=== PATIENT | female | born 1950 | race Caucasian/White ===

== ENCOUNTER 2016-12-28 13:51 | Emergency (ER) | payer SELFPAY, OTHER ==
[2016-12-28 14:14] VITALS: TEMP 99.5
[2016-12-28] MEDS ORDERED: Naproxen 550 mg Tab PO STA (14:27)
[2016-12-28] MEDS ORDERED: Naproxen 550 mg Tab PO ONE (14:34)
--- NOTE | 2016-12-28 14:49 | RAD ---
PROCEDURE: Radiographs of the Right Shoulder HISTORY: Pain, denies injury COMPARISON: None available FINDINGS: BONES: No acute displaced fracture. The distal clavicle and underlying ribs appear intact. JOINTS: No acute dislocation. Acromioclavicular arthropathy. 7 mm calcification adjacent to the right humeral head consistent with calcific tendinitis. SOFT TISSUES: Soft tissues appear unremarkable. No evidence of radiopaque foreign body. IMPRESSION: Calcific tendinitis.
--- NOTE | 2016-12-28 15:10 | C.PDOC ---
History Of Present Illness Pt c/o right shoulder pain. Denies injury. Time Seen by Provider: 12/28/16 14:18 Chief Complaint (Nursing): Upper Extremity Problem/Injury History Per: Patient Onset/Duration Of Symptoms: Days (about 3 weeks) Current Symptoms Are (Timing): Still Present Quality: "Pain" Severity: Moderate Exacerbating Factor(s): Strenuous Use Of Affected Area, Movement Additional History Per: Prior Records Past Medical History Reviewed: Historical Data, Nursing Documentation, Vital Signs Vital Signs: Last Vital Signs Temp 99.5 F 12/28/16 14:13 Pulse 95 H 12/28/16 14:13 Resp 18 12/28/16 14:13 BP 145/76 12/28/16 14:13 Pulse Ox 99 12/28/16 14:13 - Medical History PMH: No Chronic Diseases Surgical History: No Surg Hx Family History: States: Unknown Family Hx - Social History Hx Alcohol Use: No Hx Substance Use: No - Immunization History Hx Tetanus Toxoid Vaccination: No Hx Influenza Vaccination: No Hx Pneumococcal Vaccination: No Review Of Systems Except As Marked, All Systems Reviewed And Found Negative. Constitutional: Negative for: Fever, Weakness Cardiovascular: Negative for: Chest Pain Respiratory: Negative for: Shortness of Breath Gastrointestinal: Negative for: Vomiting, Abdominal Pain Musculoskeletal: Positive for: Shoulder Pain (right). Negative for: Neck Pain, Back Pain Skin: Negative for: Rash Neurological: Negative for: Weakness, Numbness, Seizures, Altered Mental Status Physical Exam - Physical Exam Appears: Non-toxic, No Acute Distress Skin: Normal Color, Warm, Dry, No Rash Head: Atraumatic, Normacephalic Eye(s): bilateral: Normal Inspection, PERRL, EOMI Neck: Normal ROM, No Midline Cervical Tenderness, No Paracervical Tenderness, No Step Off Deformity, Supple Chest: Symmetrical, No Deformity Cardiovascular: Rhythm Regular Respiratory: Normal Breath Sounds, No Accessory Muscle Use Gastrointestinal/Abdominal: Soft, No Tenderness Back: No CVA Tenderness, No Vertebral Tenderness Extremity: Capillary Refill (wnl), No Deformity, No Swelling Extremity: Right: Limited ROM To Joint (Shoulder, due to pain.) Pulses: Right Radial: Normal Neurological/Psych: Oriented x3, Normal Motor, Normal Sensation ED Course And Treatment O2 Sat by Pulse Oximetry: 99 Pulse Ox Interpretation: Normal - Other Rad Right shoulder x-rays X-Ray: Viewed By Me, Read By Radiologist Interpretation: IMPRESSION: Calcific tendinitis. Reassessment Condition: Improved Disposition Counseled Patient/Family Regarding: Studies Performed, Diagnosis, Need For Followup, Rx Given - Disposition Referrals: [facility] [Outside] Disposition: HOME/ ROUTINE Disposition Time: 15:14 Condition: STABLE Additional Instructions: Follow up in the clinic for further evaluation and treatment. Return to the ER if you develop redness, swelling, worsening of symptoms or if you have any other concerns. Prescriptions: Ibuprofen [Motrin Tab] 600 mg PO Q8 PRN #30 tab PRN Reason: Pain, Moderate (4-7) Instructions: Calcific Tendinitis (ED) Forms: [facility] (Romanian) Print Language: IVORIAN - Clinical Impression Clinical Impression: Calcific tendinitis of right shoulder region
[2016-12-28 15:26] VITALS: BP 129/74; PULSE 84; RESP 16; O2SAT 98
== END 2016-12-28 15:25 | disposition home or self-care (01) ==
LOC: C.ER 13:51
DX: M75.31 Calcific tendinitis of right shoulder (principal)

== ENCOUNTER 2018-09-25 07:23 | Day surgery (SDC) | payer MEDICARE, MEDICAID ==
[2018-09-25 08:13] VITALS: BMI 27.8
[2018-09-25 08:27] VITALS: RESP 16; O2SAT 100
[2018-09-25] MEDS ORDERED: Propofol 10 mg/ml Inj (20 ML) ONE (09:17)
--- NOTE | 2018-09-25 09:17 | CP.SDSHP ---
Same Day Surgery H & P - History Proposed Procedure: COLONSCOPY Pre-Op Diagnosis: SEE NOTES - Previous Medical/Surgical History Endocrine/Metabolic: Other Neuro: Backaches Misc: Other - Allergies Allergies: Allergies No Known Allergies Allergy (Verified 12/28/16 14:24) - Physical Exam General Appearance: N Vital Signs: Vital Signs 09/25/18 08:14 Temperature 98 F Pulse Rate 104 H Respiratory 16 Rate Blood Pressure 144/76 O2 Sat by Pulse 100 Oximetry Mental Status: Alert & Oriented x3 Neuro: WNL Heart: WNL Lungs: WNL GI: Other - {Optional Preform as Required} Breast: WNL Abdomen: Other Rectal: Other Integument: WNL : Other Ortho: Other ENT: WNL - Impression Pt. Evaluated Today:Candidate for Anesthesia & Procedure: Yes - Date & Time Time: Short Stay Discharge - Short Stay Discharge Admitting Diagnosis/Reason for Visit: ANEMIA Disposition: HOME/ ROUTINE
--- NOTE | 2018-09-25 09:20 | CP.SDSHP ---
Same Day Surgery H & P - History Proposed Procedure: egd Pre-Op Diagnosis: see notes - Allergies Allergies: Allergies No Known Allergies Allergy (Verified 12/28/16 14:24) - Physical Exam Vital Signs: Vital Signs 09/25/18 09/25/18 08:14 09:17 Temperature 98 F 98 F Pulse Rate 104 H 104 H Respiratory 16 16 Rate Blood Pressure 144/76 144/76 O2 Sat by Pulse 100 100 Oximetry Short Stay Discharge - Short Stay Discharge Admitting Diagnosis/Reason for Visit: ANEMIA Disposition: HOME/ ROUTINE
[2018-09-25] MEDS ORDERED: Belladonna-Phenobarbital PO ONE (09:55)
[2018-09-25 09:58] VITALS: TEMP 98.3
[2018-09-25 10:21] VITALS: BP 123/69; PULSE 82
== END 2018-09-25 10:21 | disposition home or self-care (01) ==
LOC: C.ENDO 07:23
PROVIDERS: ATTEND Specialist
DX: K29.00 Acute gastritis without bleeding (principal); D64.9 Anemia, unspecified; K44.9 Diaphragmatic hernia without obstruction or gangrene; K29.50 Unspecified chronic gastritis without bleeding; K29.80 Duodenitis without bleeding; B96.81 Helicobacter pylori [H. pylori] as the cause of diseases classified elsewhere
CPT/HCPCS: 43239; 88305; 88342; J2001; J2704

== ENCOUNTER 2018-09-27 07:16 | Day surgery (SDC) | payer MEDICARE, MEDICAID ==
[2018-09-26 10:22] VITALS: BMI 27.8
[2018-09-27 07:51] VITALS: O2SAT 100
--- NOTE | 2018-09-27 09:23 | CP.SDSHP ---
Same Day Surgery H & P - History Proposed Procedure: COLONSCOPY Pre-Op Diagnosis: SEE NOTES - Previous Medical/Surgical History Endocrine/Metabolic: Other Neuro: Backaches, Other Misc: Other Pain: 2.Mild Pain - Allergies Allergies: Allergies No Known Allergies Allergy (Verified 12/28/16 14:24) - Physical Exam General Appearance: N Vital Signs: Vital Signs 09/27/18 07:49 Temperature 96.8 F L Pulse Rate 108 H Respiratory 18 Rate Blood Pressure 135/65 O2 Sat by Pulse 100 Oximetry Mental Status: Alert & Oriented x3 Neuro: WNL Heart: Other Lungs: WNL GI: WNL - {Optional Preform as Required} Breast: WNL Abdomen: Other Rectal: Other Integument: WNL : WNL Ortho: Other ENT: WNL - Impression Pt. Evaluated Today:Candidate for Anesthesia & Procedure: Yes - Date & Time Time: 09:23 Short Stay Discharge - Short Stay Discharge Admitting Diagnosis/Reason for Visit: ENCOUNTER FOR SCREENING FOR MALIGNANT NEOPLASM OF Disposition: HOME/ ROUTINE
[2018-09-27] MEDS ORDERED: Propofol 10 mg/ml Inj (20 ML) ONE (09:53)
[2018-09-27] MEDS ORDERED: Lactated Ringer's 1,000 ML IV ONE (10:00)
[2018-09-27 10:46] VITALS: TEMP 97.3
[2018-09-27] MEDS ORDERED: Belladonna-Phenobarbital PO ONE (10:50)
[2018-09-27 12:22] VITALS: BP 106/62; PULSE 54; RESP 16
== END 2018-09-27 11:45 | disposition home or self-care (01) ==
LOC: C.ENDO 07:16
PROVIDERS: ATTEND Specialist
DX: Z12.11 Encounter for screening for malignant neoplasm of colon (principal); K52.9 Noninfective gastroenteritis and colitis, unspecified; K64.8 Other hemorrhoids; K64.4 Residual hemorrhoidal skin tags; E78.5 Hyperlipidemia, unspecified
CPT/HCPCS: 45380; 88305; J2704; J7120